=== PATIENT | female | born 1970 | race Caucasian/White ===

== ENCOUNTER 2016-05-12 17:12 | Inpatient (IN) | payer OTHER ==
[~2016-05-12] VITALS: Ht 165.1 cm; Wt 133.8 kg
[2016-05-12] MEDS ORDERED: NEURONTIN 400400 MG PO (22:28)
[2016-05-12] MEDS ORDERED: LIPITOR TAB 2020 MG PO (22:28)
[2016-05-12] MEDS ORDERED: TRAMADOL HCL50 MG PO (22:28)
[2016-05-12] MEDS ORDERED: METOPROLOL TART25 MG PO (22:29)
[2016-05-12] MEDS ORDERED: IMDUR ER TAB 3030 MG PO (22:29)
[2016-05-12] MEDS ORDERED: ZANAFLEX2 MG PO (22:30)
[2016-05-12] MEDS ORDERED: PROTONIX40 MG PO (22:31)
[2016-05-12] MEDS ORDERED: LASIX 40 MG TAB40 MG PO (22:31)
[2016-05-12] MEDS ORDERED: PLAVIX 75 MG TA75 MG PO (22:31)
[2016-05-12] MEDS ORDERED: TRAZODONE HCL50 MG PO (22:31)
[2016-05-12] MEDS ORDERED: PAXIL20 MG PO (22:32)
[2016-05-12] MEDS ORDERED: LEVEMIR100 UNIT/1 SQ (22:34)
[2016-05-12] MEDS ORDERED: HUMALOG100 UNIT/1 SQ (22:35)
[2016-05-12] MEDS ORDERED: NITROSTAT0.4 MG SL (22:35)
[2016-05-12] MEDS ORDERED: ASPIRIN81 MG PO (22:36)
[2016-05-13 07:16] LABS: HEMOGLOBIN 12.7 gm/dl (12.3-15.3); RED BLOOD COUNT 4.34 M/UL (4.00-5.10); WHITE BLOOD COUNT 12.9 K/UL (4.5-11.0)
[2016-05-15 05:13] LABS: HEMOGLOBIN 11.7 gm/dl (12.3-15.3); RED BLOOD COUNT 3.92 M/UL (4.00-5.10); WHITE BLOOD COUNT 10.9 K/UL (4.5-11.0)
[2016-05-21 06:32] LABS: HEMOGLOBIN 10.9 gm/dl (12.3-15.3); RED BLOOD COUNT 3.8 M/UL (4.00-5.10); WHITE BLOOD COUNT 12.1 K/UL (4.5-11.0)
[2016-05-28 04:43] LABS: HEMOGLOBIN 11.1 gm/dl (12.3-15.3)
[2016-10-13] MEDS ORDERED: GLUCOPHAGE500 MG PO (18:07)
[2016-10-13] MEDS ORDERED: COLACE 100MG C100 MG PO (18:08)
[2016-10-13] MEDS ORDERED: ZANAFLEX4 MG PO (18:08)
[2016-10-13] MEDS ORDERED: LORTAB 5-325 M1 EACH PO (18:09)
[2016-10-13] MEDS ORDERED: HUMALOG100 UNIT/3 SQ (18:10)
[2016-10-13] MEDS ORDERED: TRESIBA SQ (18:12)
[2016-10-22] MEDS ORDERED: LEVAQUIN750 MG PO (14:17)
[2016-10-22] MEDS ORDERED: LISINOPRIL10 MG PO (14:18)
[2016-10-22] MEDS ORDERED: VITAMIN C500 M1 PO (14:18)
== END 2016-05-28 13:15 | DRG 616 ==
LOC: PROG CARE 17:12 → MED SURG 4 21:28 → PROG CARE 21:28 → MED SURG 4 05-13 15:53
PROVIDERS: Family Medicine; Hospitalist; Internal Medicine; Nurse Practitioner; Podiatrist Foot & Ankle Surgery; ADMIT Internal Medicine
PROC: 0Y6N0Z9 Detachment at Left Foot, Partial 1st Ray, Open Approach (ICD-10-PCS; principal; 2016-05-14 13:15)
PROC: 0Y6N0ZB Detachment at Left Foot, Partial 2nd Ray, Open Approach (ICD-10-PCS; 2016-05-18)
PROC: 0Y6N0ZD Detachment at Left Foot, Partial 4th Ray, Open Approach (ICD-10-PCS; 2016-05-18)
PROC: 0Y6N0ZF Detachment at Left Foot, Partial 5th Ray, Open Approach (ICD-10-PCS; 2016-05-18)
PROC: 0Y6N0ZC Detachment at Left Foot, Partial 3rd Ray, Open Approach (ICD-10-PCS; 2016-05-18)
PROC: 0JBR0ZZ Excision of Left Foot Subcutaneous Tissue and Fascia, Open Approach (ICD-10-PCS; 2016-05-18)
DX: E11.69 Type 2 diabetes mellitus with other specified complication (principal); A48.0 Gas gangrene; E11.52 Type 2 diabetes mellitus with diabetic peripheral angiopathy with gangrene; L03.116 Cellulitis of left lower limb; M86.172 Other acute osteomyelitis, left ankle and foot; M31.9 Necrotizing vasculopathy, unspecified; N39.0 Urinary tract infection, site not specified; Z68.42 Body mass index [BMI] 45.0-49.9, adult; E11.59 Type 2 diabetes mellitus with other circulatory complications; I73.9 Peripheral vascular disease, unspecified; E66.01 Morbid (severe) obesity due to excess calories; B96.89 Other specified bacterial agents as the cause of diseases classified elsewhere; F32.9 Major depressive disorder, single episode, unspecified; I25.10 Atherosclerotic heart disease of native coronary artery without angina pectoris; I10 Essential (primary) hypertension; Z86.73 Personal history of transient ischemic attack (TIA), and cerebral infarction without residual deficits; Z95.5 Presence of coronary angioplasty implant and graft; E11.40 Type 2 diabetes mellitus with diabetic neuropathy, unspecified; Z95.1 Presence of aortocoronary bypass graft; F17.210 Nicotine dependence, cigarettes, uncomplicated; E78.5 Hyperlipidemia, unspecified; Z90.49 Acquired absence of other specified parts of digestive tract; Z98.890 Other specified postprocedural states; Z89.422 Acquired absence of other left toe(s); Z88.5 Allergy status to narcotic agent; R30.0 Dysuria; Z82.49 Family history of ischemic heart disease and other diseases of the circulatory system; Z87.11 Personal history of peptic ulcer disease; Z79.82 Long term (current) use of aspirin; Z79.899 Other long term (current) drug therapy; Z79.4 Long term (current) use of insulin; Z88.8 Allergy status to other drugs, medicaments and biological substances
CPT/HCPCS: ECHO; 36415; 73630; 73718; 75630; 78452; 80048; 80202; 81001; 82962; 83036; 85007; 85014; 85018; 85025; 85027; 85347; 86140; 87040; 87070; 87077; 87086; 87186; 87205; 93005; 93017; 93306; 93925; 97110; 97116; 97530; A9502; C1713; C1714; C1769; C1887; C2623; J0290; J1644; J1650; J1815; J1885; J2250; J2270; J2370; J2405; J2543; J2785; J2795; J3010; J3370; J7030; J7040; J7050; J7070; J7120; Q9965

== ENCOUNTER → 2016-09-12 | Outpatient (CLI) | payer OTHER ==
[~2016-09-12] MED LIST: ASPIRIN81 MG PO; COLACE 100MG C100 MG PO; GLUCOPHAGE500 MG PO; HUMALOG100 UNIT/1 SQ; HUMALOG100 UNIT/3 SQ; IMDUR ER TAB 3030 MG PO; LASIX 40 MG TAB40 MG PO; LEVAQUIN750 MG PO; LEVEMIR100 UNIT/1 SQ; LIPITOR TAB 2020 MG PO; LISINOPRIL10 MG PO; LORTAB 5-325 M1 EACH PO; METOPROLOL TART25 MG PO; NEURONTIN 400400 MG PO; NITROSTAT0.4 MG SL; PAXIL20 MG PO; PLAVIX 75 MG TA75 MG PO; PROTONIX40 MG PO; TRAMADOL HCL50 MG PO; TRAZODONE HCL50 MG PO; TRESIBA SQ; VITAMIN C500 M1 PO; ZANAFLEX2 MG PO; ZANAFLEX4 MG PO
== END ==
LOC: KOH-I 11:39
DX: M86.072 Acute hematogenous osteomyelitis, left ankle and foot (principal); R60.0 Localized edema; Z98.890 Other specified postprocedural states
CPT/HCPCS: 73718

== ENCOUNTER 2021-03-24 18:07 | Inpatient (IN) | payer OTHER ==
[~2021-03-24] VITALS: Ht 165.1 cm; Wt 91.9 kg
[~2021-03-24 18:07] MED LIST changes: +ADMELOG SO100 UNIT/1 SC; +ASPIRIN CHEWABL81 MG PO; +BASAGLAR K100 UNIT/1 SC; +CLEOCIN 150MG150 MG PO; +IBUPROFEN800 MG PO; +LASIX40 MG PO; +LOPRESSOR 25 MG25 MG PO; +LORTAB 7.5-3251 EACH PO; +NEURONTIN 300300 MG PO; -NITROSTAT0.4 MG SL; -PAXIL20 MG PO; +ZYVOX 600 MG T600 MG PO
[2021-03-24 19:22] LABS: HEMOGLOBIN 12.6 gm/dl (12.3-15.3); RED BLOOD COUNT 4.77 M/UL (4.00-5.10); WHITE BLOOD COUNT 7.5 K/UL (4.5-11.0)
[2021-03-25] MEDS ORDERED: GABAPENTIN600 MG PO (11:02)
[2021-03-25] MEDS ORDERED: LIPITOR80 MG PO ×2 (11:08→12:51)
[2021-03-25] MEDS ORDERED: HYDROCODON-ACE1 EAC4 PO (12:50)
[2021-03-25] MEDS ORDERED: CARVEDILOL3.125 MG PO (12:50)
[2021-03-25] MEDS ORDERED: DRISDOL1250 MCG PO (12:50)
[2021-03-25] MEDS ORDERED: XARELTO20 MG PO (12:51)
[2021-03-25] MEDS ORDERED: PLAVIX 75 MG TA75 MG PO (12:51)
[2021-03-25] MEDS ORDERED: ENTRESTO 24 MG1 EACH PO (12:52)
[2021-03-25] MEDS ORDERED: DOCUSATE SODIU100 MG PO (12:52)
[2021-03-25] MEDS ORDERED: METFORMIN HCL500 MG PO (12:52)
[2021-03-25] MEDS ORDERED: ZINC50 M1 PO (12:53)
[2021-03-25] MEDS ORDERED: POTASSIUM GLUCO99 MG PO (12:55)
[2021-03-25] MEDS ORDERED: MELATONIN3 MG PO (12:56)
[2021-03-25] MEDS ORDERED: PAXIL20 MG PO (22:32)
[2021-03-25] MEDS ORDERED: NITROSTAT0.4 MG SL (22:35)
--- NOTE | 2021-03-25 23:38 | NUR ---
NOTIFIED DR. DECKER OF BP OF 86/52, RECEIVED AN ORDER FOR A 250 BOLUS OF NORMAL SALINE ONCE. AFTER THE BOLUS, BP WAS 109/61. 30 MINUTES LATER, THE BP IS NOW 90/38. NOTIFIED DR. DECKER. WAITING ON NEW ORDERS.
[2021-03-26 07:16] LABS: HEMOGLOBIN 10.8 gm/dl (12.3-15.3); WHITE BLOOD COUNT 6.6 K/UL (4.5-11.0)
[2021-03-26 07:27] LABS: RED BLOOD COUNT 4.15 M/UL (4.00-5.10)
[2021-03-26 21:16] LABS: HEMOGLOBIN 10.2 gm/dl (12.3-15.3); RED BLOOD COUNT 3.92 M/UL (4.00-5.10)
[2021-03-27 06:45] LABS: RED BLOOD COUNT 3.89 M/UL (4.00-5.10); WHITE BLOOD COUNT 6.7 K/UL (4.5-11.0)
--- NOTE | 2021-03-27 16:12 | NUR ---
Patient requested to go outside in a wheelchair, stated that se did not want to wear 02, outside. Patient stated that she would only be gone for 15 min. Patient has family member at bedside willing to take patient in a wheel chair. Educated patient on risk of going outside, eg...patient will not be monitored on telemetry, or pulse ox. Patient verbalized understanding. Dr. Willis aware.
[2021-03-28 06:56] LABS: HEMOGLOBIN 9.7 gm/dl (12.3-15.3); RED BLOOD COUNT 3.84 M/UL (4.00-5.10); WHITE BLOOD COUNT 6.1 K/UL (4.5-11.0)
[2021-03-29 07:04] LABS: HEMOGLOBIN 9.9 gm/dl (12.3-15.3); RED BLOOD COUNT 3.86 M/UL (4.00-5.10); WHITE BLOOD COUNT 5.7 K/UL (4.5-11.0)
[2021-03-31 07:50] LABS: HEMOGLOBIN 10.7 gm/dl (12.3-15.3); WHITE BLOOD COUNT 5.9 K/UL (4.5-11.0)
[2021-03-31 07:55] LABS: RED BLOOD COUNT 4.27 M/UL (4.00-5.10)
[2021-04-01 07:19] LABS: HEMOGLOBIN 9.5 gm/dl (12.3-15.3); RED BLOOD COUNT 3.81 M/UL (4.00-5.10); WHITE BLOOD COUNT 5.2 K/UL (4.5-11.0)
[2021-04-01] MEDS ORDERED: CLINDAMYCIN HC300 MG PO (13:03)
[2021-04-01] MEDS ORDERED: LEVOFLOXACIN500 MG PO (13:03)
[2021-04-02 07:35] LABS: HEMOGLOBIN 8.9 gm/dl (12.3-15.3); RED BLOOD COUNT 3.58 M/UL (4.00-5.10)
[2021-04-02 07:39] LABS: WHITE BLOOD COUNT 7.6 K/UL (4.5-11.0)
[2021-04-03 07:06] LABS: HEMOGLOBIN 8.6 gm/dl (12.3-15.3); RED BLOOD COUNT 3.27 M/UL (4.00-5.10); WHITE BLOOD COUNT 6.6 K/UL (4.5-11.0)
[2021-04-03] MEDS ORDERED: GABAPENTIN600 MG PO (11:30)
[2021-04-03] MEDS ORDERED: METFORMIN HCL500 MG PO (11:30)
[2021-04-03] MEDS ORDERED: LANTUS INS100 UTS/M1 SQ (11:30)
[2021-04-03] MEDS ORDERED: HYDROCODON-ACE1 EAC4 PO (11:30)
[2021-04-03] MEDS ORDERED: HUMALOG 10100 UNITS/ SC (11:30)
[2021-04-03] MEDS ORDERED: LASIX40 MG PO (11:37)
--- NOTE | 2021-04-03 14:43 | NUR ---
REPORT CALLED TO EARLE AT [facility] AND [facility].
== END 2021-04-03 17:38 | DRG 226 ==
LOC: ER1 18:07 → CDU 03-25 03:50 → M/S 03-25 03:50 → CDU 03-25 03:50 → M/S 03-25 20:29
PROVIDERS: Internal Medicine; Physician Assistant; Physician Assistant Medical; ADMIT Internal Medicine
PROC: B24BZZZ Ultrasonography of Heart with Aorta (ICD-10-PCS; 2021-03-25)
PROC: 0JH608Z Insertion of Defibrillator Generator into Chest Subcutaneous Tissue and Fascia, Open Approach (ICD-10-PCS; principal; 2021-04-01)
PROC: 02HL3KZ Insertion of Defibrillator Lead into Left Ventricle, Percutaneous Approach (ICD-10-PCS; 2021-04-01)
PROC: 02H73KZ Insertion of Defibrillator Lead into Left Atrium, Percutaneous Approach (ICD-10-PCS; 2021-04-01)
DX: I13.0 Hypertensive heart and chronic kidney disease with heart failure and stage 1 through stage 4 chronic kidney disease, or unspecified chronic kidney disease (principal); Z20.822 Contact with and (suspected) exposure to COVID-19; I50.23 Acute on chronic systolic (congestive) heart failure; J96.01 Acute respiratory failure with hypoxia; N17.9 Acute kidney failure, unspecified; I25.5 Ischemic cardiomyopathy; I25.10 Atherosclerotic heart disease of native coronary artery without angina pectoris; E78.5 Hyperlipidemia, unspecified; E11.22 Type 2 diabetes mellitus with diabetic chronic kidney disease; I48.0 Paroxysmal atrial fibrillation; E11.65 Type 2 diabetes mellitus with hyperglycemia; E66.9 Obesity, unspecified; I42.7 Cardiomyopathy due to drug and external agent; T38.0X5A Adverse effect of glucocorticoids and synthetic analogues, initial encounter; F17.210 Nicotine dependence, cigarettes, uncomplicated; F41.9 Anxiety disorder, unspecified; I08.3 Combined rheumatic disorders of mitral, aortic and tricuspid valves; Z95.5 Presence of coronary angioplasty implant and graft; Z95.1 Presence of aortocoronary bypass graft; Z89.512 Acquired absence of left leg below knee; Z79.01 Long term (current) use of anticoagulants; Z86.14 Personal history of Methicillin resistant Staphylococcus aureus infection; Z95.810 Presence of automatic (implantable) cardiac defibrillator; I25.2 Old myocardial infarction; Z79.82 Long term (current) use of aspirin; Z79.4 Long term (current) use of insulin; Z74.01 Bed confinement status; Z86.73 Personal history of transient ischemic attack (TIA), and cerebral infarction without residual deficits; Z87.11 Personal history of peptic ulcer disease; Z90.49 Acquired absence of other specified parts of digestive tract; Z82.49 Family history of ischemic heart disease and other diseases of the circulatory system; Z91.14 Patient's other noncompliance with medication regimen; Z88.8 Allergy status to other drugs, medicaments and biological substances; Z88.6 Allergy status to analgesic agent
CPT/HCPCS: ECHO; 33270; 36415; 36600; 71045; 78452; 80048; 80053; 82550; 82553; 82803; 82962; 83735; 83874; 83880; 84484; 85025; 85027; 85610; 93005; 93017; 93306; 93644; 93971; 94760; 96372; 96374; 96376; 97110; 97110-GP-CQ; 97116-GP-CQ; 97161; 97166; 97530; 97530-GP-CQ; 99152; 99153; 99285; A9502; C1722; C1896; G0378; J1642; J1644; J1650; J1940; J2250; J2405; J2785; J3010; J3370; J7040; J7050; J7070; U0002